=== PATIENT | male | born 1960 | race African-American/Black ===

== ENCOUNTER 2022-02-03 11:29 | Emergency (ER) | payer OTHER ==
[~2022-02-03] VITALS: Ht 167.6 cm; Wt 127.3 kg
[~2022-02-03 11:29] MED LIST: NOCURR
[2022-02-03] MEDS ORDERED: DICLOFENAC SODIUM 1% 100 GM GEL [4GM] TP ONE (15:00)
[2022-02-03 15:24] VITALS: BP 135/82
== END 2022-02-03 15:27 | disposition home or self-care (01) ==
LOC: EMS 11:29
DX: M17.12 Unilateral primary osteoarthritis, left knee (principal)
CPT/HCPCS: 99283